=== PATIENT | male | born 1960 | race Caucasian/White ===

== ENCOUNTER → 2024-06-05 15:02 | Outpatient (REF) | payer OTHER, SELFPAY | LOC: HWRAD 15:02 | PROVIDERS: ATTENDING PHYSICIAN Physician Assistant Medical | DX: S29.9XXA Unspecified injury of thorax, initial encounter (principal) | CPT/HCPCS: 71111 ==

== ENCOUNTER 2024-09-04 06:33 | Day surgery (SDC) | payer OTHER, SELFPAY ==
[2024-08-29 10:50] LABS: Hematocrit 42.9 % (39.0-52.0); Hemoglobin 14.1 g/dL (13.0-18.0); Mean Corp Hgb Conc. 32.9 g/dL (33.0-37.0); Mean Corpuscular Hgb 27.5 pg (27.0-31.0); Mean Corpuscular Volume 83.8 fL (80.0-94.0); Platelet Count 195 10^3/uL (130-400); Red Blood Cell Count 5.12 10^6/uL (4.70-6.10); Red Cell Dist. Width 14.6 % (11.5-14.5); White Blood Cell Count 5.9 10^3/uL (4.8-10.8)
[2024-08-29 11:33] LABS: Blood Urea Nitrogen 12 mg/dl (9-20); Calcium 9.4 mg/dl (8.4-10.2); Carbon Dioxide 29 mmol/L (22-30); Chloride 105 mmol/L (98-107); Glucose 104 mg/dl (70-99); Potassium 4.1 mmol/L (3.5-5.1); Sodium 146 mmol/L (135-145); eGFR > 60.00
[2024-08-29 12:33] VITALS: BMI 28.8
[2024-09-04] VITALS (9 sets, daily range): BP systolic 104–152; BP diastolic 53–96; BMI 28.8
--- NOTE | 2024-09-04 07:16 | HP.FOC2 ---
Focused History & Physical
Chief Complaint
HPI:
Chief Complaint: Left inguinal hernia
HPI / Indication for Planned Procedure: Patient is a 64-year-old male recently seen in outpatient surgical evaluation secondary to a few month history of swelling in the left inguinal region. Swelling present upon standing. Awareness of the hernia
being present but no significant pain or discomfort. No symptoms suggestive of intermittent incarceration or obstruction.
He has previously undergone right inguinal herniorrhaphy as a child and subsequent repair of acute incarceration for recurrent right inguinal hernia in 2007.
Relevant Past Medical History: Other (Hypertension, A-fib, hyperlipidemia, CAD, GERD, obesity)
Relevant Social History: Negative
Relevant Family History: Negative
Relevant Past Surgical History: Positive for (History of coronary stenting, CABG x 3, cardiac cath, sternal repair, previous right inguinal herniorrhaphy x 2)
Review of Systems
Review of Pertinent Systems: All Systems Negative
Medication
See Medication form for detailed medications: Yes
Medication List (including Herbals & OTC):
aspirin 81 mg tablet,delayed release ([place] Aspirin) 81 mg PO HS 11/01/15
cholecalciferol (vitamin D3) 50 mcg (2,000 unit) tablet 2,000 unit PO HS 07/30/17
amlodipine 10 mg tablet 20 mg PO HS 08/31/24
hydrocodone bitartrate 10 mg capsule, oral only, extended rel 12 hr 10 mg PO Q12H 08/31/24
isosorbide mononitrate 30 mg tablet,extended release 24 hr 30 mg PO HS 08/31/24
morphine 15 mg tablet,extended release 15 mg PO Q12H 08/31/24
warfarin 5 mg tablet 5 mg PO DIRECTED 08/31/24
warfarin 7.5 mg tablet 7.5 mg PO DIRECTED 08/31/24
Medications Reviewed: Yes
Allergies and Reactions
Patient has Allergies: Yes
Noted Allergies and Reactions:
Allergy/AdvReac Type Severity Reaction Status Date / Time
cat dander Allergy ITCHING, Verified 08/31/24 13:34
CONGESTION
house dust Allergy CONGESTION Verified 08/31/24 13:34
pollen extracts Allergy CONGESTION Verified 08/31/24 13:34
Pertinent Physical Exam
All Other Systems: Negative
Head/Neck: Normal
Lungs: Normal
Heart: Normal
Abdomen: Other (Left inguinal hernia, reducible, nontender) and Other (Right inguinal surgical scars)
Extremities: Normal
Neurological: Normal
Diagnosis / Assessment
64-year-old male presenting for scheduled operative correction symptomatic left inguinal hernia
Plan / Procedure
Robotic assisted laparoscopic repair left inguinal hernia with mesh
Anesthesia/Sedation to be done by Anesthesia Provider: Yes
[2024-09-04] MEDS: TYLENOL 1000 MG PO (07:46)
--- NOTE | 2024-09-04 08:36 | W.SUR.PREOP ---
Pre-Operative Surgical Note
-
I have examined this patient prior to the performance of the scheduled procedure.
The patient's condition is unchanged from the time of the current History and
Physical and the patient is able to undergo the scheduled procedure.
--- NOTE | 2024-09-04 10:20 | W.IMMPOSTOP ---
Surgical Immed Post Op Note
-
Primary Surgeon: Manna
Assisting Surgeon: Danielle BLAND
Pre-op Diagnosis: Left inguinal hernia
Post-op Diagnosis: Left inguinal hernia, direct
Procedure Performed: RAL CHESTER repair left inguinal hernia mesh; 3D max large mid weight
Anesthesia Type: GETA +0.25% Marcaine
Specimen / Cultures: None
Estimated Blood Loss: 6 mL
Complications: None immediate
Operative Findings: Left direct inguinal hernia. Left indirect and femoral spaces normal. Plicated pseudosac of the direct space with 2-0 PDS strata fix to George's ligament. 3D max large mid weight mesh repair secured to George's with 2
interrupted 2-0 Vicryl sutures. Peritoneal flap closed with 2-0 Monocryl STRATAFIX spiral suture. No incidental findings.
--- NOTE | 2024-09-04 10:24 | OR.RPT ---
Operative Report
Operative Report
Date of operative procedure: 09/04/2024
Primary Surgeon: Jose Manuel Hinkle MD
Assisting Surgeon: EDWINA Thomas
Pre-op Diagnosis: Left inguinal hernia
Post-op Diagnosis: Left inguinal hernia, direct
Procedure Performed: Robotic assisted laparoscopic CHESTER repair left inguinal hernia with mesh; 3D max large mid weight mesh
Anesthesia Type: GETA +0.25% Marcaine
Specimen / Cultures: None/none
Estimated Blood Loss: 6 mL
Complications: None immediate
Indications for operative procedure: Patient is a 64-year-old male recently seen in outpatient surgical evaluation secondary to a few month history of swelling in the left inguinal region. Left inguinal swelling present upon standing. Awareness
of the hernia being present but no significant pain or discomfort. No symptoms suggestive of intermittent incarceration or obstruction. After discussion with the patient and his regarding treatment options he wished to pursue operative
correction. We discussed various operative approaches to repair and have elected to proceed with a robotic assisted laparoscopic left inguinal herniorrhaphy with mesh.
Brief summary of operative Findings: Left direct inguinal hernia. Left indirect and femoral spaces normal. Plicated pseudosac of the direct space with 2-0 PDS strata fix to George's ligament. 3D max large mid weight mesh repair secured to
George's with 2 interrupted 2-0 Vicryl sutures. Peritoneal flap closed with 2-0 Monocryl STRATAFIX spiral suture. No incidental findings.
Operation detail: The patient was identified in the preoperative holding area. I confirmed the left inguinal region to be the surgical site and side with the patient preoperatively which was then marked and initialed. He was interviewed by the
anesthesia and nursing staff then brought back to the operating room. The patient was placed on the operating table in supine position. The bilateral upper extremities were carefully padded and tucked at the side utilizing the arm guard
positioning system. Pneumatic compression boots were on the bilateral lower extremities. Following induction of general endotracheal anesthesia the patient was administered Ancef 2 g IV for prophylactic antibiotic coverage. The patient's anterior
abdominal wall was now widely and sterilely prepped with ChloraPrep and then draped in the usual manner. The surgical timeout was completed and the procedure was confirmed.
I initially proceeded with Veress needle insufflation in the left subcostal midclavicular line location. Once insufflated to 12 mmHg pressure then a left midclavicular line 8 mm trocar was then placed. The robotic scope was inserted, there was no
evidence of iatrogenic injury from access. The Veress needle was withdrawn. An epigastric 8 mm trocar was placed just to the left of the midline. A right midclavicular line 8 mm trocar was placed. The patient was then transition into 14 degrees
Trendelenburg to expose the inguinal/pelvic space and the robot was docked.
At the surgeon console inspection of the pelvis confirmed the presence of a left direct inguinal hernia. There were no additional incidental intra-abdominal findings. Previous history of right inguinal herniorrhaphy remained intact without evidence
of adhesions or peritoneal scar tissue.
I initially began with creation of a peritoneal flap at the level of the left ASIS to the left medial umbilical ligament. The preperitoneal plane was now established along the length of the flap and developed inferiorly down to the inguinal space.
The medial dissection proceeded until the notch of the pubic symphysis was exposed at the midline followed by George's ligament on the left side. George's ligament was now cleared completely reducing the herniated peritoneum and preperitoneal fat
off of the pseudosac of the direct inguinal hernia space. The left femoral space was exposed and normal. The underside of George's ligament was exposed as well. The peritoneal flap was now mobilized laterally down to the internal ring. The
peritoneum was now grasped and reduced off the left spermatic cord with identification of the vas and the spermatic cord vessels. The peritoneal dissection continued back proximally past the turn in the left vas deferens and then overlying the left
iliac space to meet up with the medial dissection. The posterior dissection continued until there was wide separation between the vas and the spermatic cord vessels. The dissection continued posterior laterally for full exposure of the
myopectineal orifice.
With the myopectineal orifice now completely exposed hemostasis was confirmed. The attenuated pseudosac of the direct space was plicated, reduced and secured to George's ligament with a 2-0 PDS STRATAFIX spiral stitch. A 3D max large mid weight
mesh was utilized for repair. The mesh was positioned parallel to the ileopubic tract. It was secured at 2 separate locations inferior medially on George's ligament with 2 simple interrupted 2-0 Vicryl sutures. The patient was now begun to be
taken out of Trendelenburg to confirm that the posterior aspect of the mesh was lying flat and that there was no shelling or undermining of the mesh by the peritoneal edge. The peritoneal flap was now closed with a 2-0 Monocryl STRATAFIX spiral
suture with a running [place] type stitch.
A flexible suction catheter was placed through an 8 mm trocar and introduced into the peritoneal flap to evacuate the air out of the preperitoneal space. This again confirmed good positioning of the inguinal hernia mesh. There was no shelling or
folding of the mesh and no undermining and mesh by the peritoneal edge. The peritoneal covering of the mesh was completely intact.
At this point the robot was undocked. All sponge instrument and needle counts were confirmed to be correct x 2. The CO2 insufflation was now carefully evacuated out of the abdominal cavity. The trocar sites were removed as well as the flexible
suction catheter. Skin was closed with 4-0 Monocryl. Sterile surgical glue dressings were applied. The patient tolerated the procedure well and was transferred to the recovery unit for routine postoperative monitoring.
== END 2024-09-04 12:10 | disposition home or self-care (01) ==
LOC: SDS 06:33
PROVIDERS: ATTENDING PHYSICIAN Surgery; FAMILY PHYSICIAN Family Medicine
PROC: 8E0W4CZ Robotic Assisted Procedure of Trunk Region, Percutaneous Endoscopic Approach (ICD-10-PCS; 2024-09-04)
PROC: 0YU64JZ Supplement Left Inguinal Region with Synthetic Substitute, Percutaneous Endoscopic Approach (ICD-10-PCS; 2024-09-04)
DX: K40.90 Unilateral inguinal hernia, without obstruction or gangrene, not specified as recurrent (principal); I10 Essential (primary) hypertension; E66.9 Obesity, unspecified; E78.5 Hyperlipidemia, unspecified; I25.10 Atherosclerotic heart disease of native coronary artery without angina pectoris; I48.91 Unspecified atrial fibrillation; K21.9 Gastro-esophageal reflux disease without esophagitis
CPT/HCPCS: 49650; 36415; 80048; 85027; C1781

== ENCOUNTER 2025-07-16 17:05 | Emergency (ER) | payer MEDICARE, OTHER, SELFPAY ==
[2025-07-16 17:14] VITALS: BP 162/101
[2025-07-16 19:12] LABS: Hematocrit 31.8 % (39.0-52.0); Hemoglobin 9.2 g/dL (13.0-18.0); Mean Corp Hgb Conc. 28.9 g/dL (33.0-37.0); Mean Corpuscular Volume 66.0 fL (80.0-94.0); Platelet Count 249 10^3/uL (130-400); Red Cell Dist. Width 17.5 % (11.5-14.5)
[2025-07-16 19:13] LABS: INR 2.95; PT 30.6 Sec (11.4-14.6)
[2025-07-16 19:14] LABS: APTT 68.8 Sec (23.4-35.0)
[2025-07-16 19:21] LABS: Blood Urea Nitrogen 9 mg/dl (9-20); Calcium 9.0 mg/dl (8.4-10.2); Carbon Dioxide 26 mmol/L (22-30); Chloride 105 mmol/L (98-107); Glucose 107 mg/dl (70-99); Potassium 3.3 mmol/L (3.5-5.1); Sodium 142 mmol/L (135-145); eGFR > 60.00
[2025-07-16 19:27] LABS: Troponin I 0.016 ng/ml
--- NOTE | 2025-07-16 19:41 | ED.GENMED ---
History of Present Illness
General
Chief Complaint: Extremity Pain (non-traumatic)
Source: patient
Exam Limitations: none
Time Seen by Provider: 07/16/25 18:13
History of Present Illness
History of Present Illness:
65-year-old male complaining of left arm pain and at times numbness. It has been there for a while but worse and more continuous for last 2 days. Denies chest pain shortness of breath. Sent by his primary for a cardiac evaluation. Denies unusual
headache. Does at times get posterior neck pain. Patient is convinced it is related to his IV sticks at his left antecubital area from his INR's.
Past History
Past History
ED Past Medical History: Arrthythmia, CAD and HTN
ED Past Surgical History: Cardiac and Other (Right hernia repair); Negative Urological
Social History
Tobacco: Smoker
Alcohol: Occasional
Drug: None
Personal:
Living: with family
Employment: Employed
Family History
Family History: Hypertension
Review of Systems
Review of Systems
All Other Systems: Not applicable
Constitutional: Denies fever
Respiratory: Reports no symptoms
Cardiac: Reports no symptoms
ABD/GI: Denies bloody stools or black stools
Phy Exam
Physical Exam
Physical Exam:
GENERAL: Alert and oriented in no apparent distress. Initially sitting in the chair nontoxic in appearance
EYE: Orbits normal.
NECK: Supple. Nontender
CARDIAC: Irregular irregular no murmur. Sternotomy scar
LUNGS: Clear breath sounds,normal
ABDOMEN: Soft, without focal tenderness or distention. Large upper abdominal wall hernia.
NEUROLOGICAL: Alert and oriented , grossly non-focal
SKIN: Warm and dry, no rash or lesion, no discoloration, skin intact.
MUSCULOSKELETAL: No edema,no deformity.Good color. Good pulses to the left and right arm. No swelling or deformity to the left arm. Good distal capillary refill. Good groundskeeping maintenance worker. No point tenderness. No forearm or upper arm swelling.
PSYCH: Normal and appropriate interaction.
Course
Orders/Labs/Results
Orders:
Orders
07/16/25 18:53
Basic Metabolic Panel Urgent
Complete Blood Count/With Diff Urgent
PTT Urgent
Prothrombin Time Urgent
Troponin I Urgent
07/16/25 19:48
Dexamethasone Sod Phosphate [Decadron] 6 mg IV NOW STA
Abnormal Lab Results
07/16/25
18:53
Hgb 9.2 L g/dL
(13.0-18.0)
Hct 31.8 L %
(39.0-52.0)
MCV 66.0 L fL
(80.0-94.0)
MCH 19.1 L pg
(27.0-31.0)
MCHC 28.9 L g/dL
(33.0-37.0)
RDW 17.5 H %
(11.5-14.5)
MPV 11.2 H fL
(7.4-10.4)
Lymphocytes % 16.8 L %
(20.5-51.1)
PT 30.6 H Sec
(11.4-14.6)
APTT 68.8 H Sec
(23.4-35.0)
Potassium 3.3 L mmol/L
(3.5-5.1)
Glucose 107 H mg/dl
(70-99)
07/16/25 18:53
07/16/25 18:53
Vital Signs
Initial and Last Documented VS:
Initial Vital Signs
Temp Pulse Resp BP Pulse Ox
98.8 F 68 18 162/101 96
07/16/25 17:14 07/16/25 17:14 07/16/25 17:14 07/16/25 17:14 07/16/25 17:14
Last Documented Vital Signs
Temp Pulse Resp BP Pulse Ox
98.8 F 68 18 162/101 96
07/16/25 17:14 07/16/25 17:14 07/16/25 17:14 07/16/25 17:14 07/16/25 19:47
MDM/Problems Addressed
Differential Diagnosis Includes:
Patient complaining of days of continuous nonexertional left arm pain. He denies any chest pain or shortness of breath with this pain. There is nothing to support his theory of a issue with his IV sticks. The antecubital area appears normal.
Nothing to support a DVT. He is on Coumadin with therapeutic INR. There is no swelling no warmth no erythema. He has great distal pulses and color. Highly doubt cardiac with 2 days of nonexertional continuous arm symptoms with no acute changes
on EKG and a stable troponin. I suspect this is a radiculopathy. I offered a CT for further evaluation. No indication for stat MRI. I also reviewed his hemoglobin which was significantly different than the hemoglobin of 2023. He states his
stools have not been dark or tarry. They have been if anything light in color. I recommend rectal exam to evaluate for occult bleeding. He absolutely refuses. He was not pleasant during this conversation. At this time I see no indication for
further cardiac testing acutely. He should have a rectal exam but refuses. I do not feel there is an acute vascular issue. As for pain management he is on chronic pain management. When I reevaluated him and discussed these issues, he was sitting
up reading a book in no distress. . I do not feel I can add further from a pain management standpoint. I did offer a shot of a steroid which may help if this is a radiculopathy.
*Pulse Oximetry
SaO2: 96
Oxygen Mode of Delivery: Room air
Patient hypoxic: no
*EKG
Interpreted by ED Provider?: Yes
Interpretation: abnormal
Rate: normal
Rhythm: a-fib
Blachly: right axis deviation
Interval: normal interval
QRS Pattern: normal QRS
Ischemia: non-specific ST changes
*Critical Care Note
Total Time (30-74mins, 75-104mins- exclusive of procedures): Not Applicable
Data Reviewed
Review of Other/Old Records Reveals: Labs, Records and Testing
ED Attending Note
-
Portions of this chart may have been created with voice recognition software.� Occasional wrong word or��sound alike� substitutions may have occurred due to the inherent limitations of voice recognition software.
Discharge Plan
Departure
Patient Disposition: Home (Routine Discharge)
Date of Disposition: 07/16/25
Time of Disposition: 19:53
Patient with high blood pressure during this ER visit?: Yes
Discharge Problem:
Left arm pain, Suspect radiculopathy, Mild hypokalemia, New onset anemia
Instructions: Radiculopathy of the neck and back (including sciatica), BLOOD PRESSURE
Prescriptions:
No Action
aspirin [[place] Aspirin] 81 MG tablet,delayed release (DR/EC)
81 mg PO HS
cholecalciferol (vitamin D3) 2,000 UNIT tablet
2,000 unit PO HS
warfarin 7.5 mg Tablet
7.5 mg PO DIRECTED
Rx Instructions:
TUES, SAT
isosorbide mononitrate 30 mg Tablet Extended Release 24 Hr
30 mg PO HS
amlodipine 10 mg Tablet
20 mg PO HS
warfarin 5 mg Tablet
5 mg PO DIRECTED
Rx Instructions:
MON, WED, THURS, FRI, SUN
morphine 15 mg Tablet Extended Release
15 mg PO Q12H
hydrocodone bitartrate 10 mg Capsule, Oral Only, Er 12hr
10 mg PO Q12H
acetaminophen [Tylenol Extra Strength] 500 mg tablet
1,000 mg PO Q6HPRN PRN (Reason: mild pain) Qty: 1 0RF
oxycodone 5 mg tablet
5 mg PO Q4HPRN PRN (Reason: breakthrough/severe pain) Qty: 5 0RF
Referrals:
Mis Sanchez PA-C [Family Provider, Family Practice] - Follow up in 2-3 days
Activity Restrictions/Additional Instructions:
Call your primary physician tomorrow for close follow-up
You should have a anemia workup and should have your hemoglobin repeated in the next few days to make sure it is not going lower
Return sooner with increased pain weakness fever arm swelling redness or any other concerning symptoms.
Also return with recurrent chest pain shortness of breath etc.
Interventions
Interventions:
*Risk Screen - Suicide Last Done: 07/16/25 17:14
*Neglect/Abuse Screening Last Done: 07/16/25 17:14
*Nursing Disposition Last Done: 07/16/25 20:04
ED-Musculoskeletal Assessment Last Done: 07/16/25 18:11
Discharge Date and Time
Discharge Date/Time: 07/16/25 20:05
Print Language: TELUGU
[2025-07-16] MEDS: DECADRON 6 MG IV (19:59)
[2025-07-16 20:23] LABS: Nucleated Red Blood Cells % 0 % (-)
[2025-07-16 20:58] LABS: Anisocytosis 2+; Hypochromasia 2+; Macrocytosis 1+; Normal RBC Morphology No; Ovalocytes 2+; Spherocytes 1+; Stomatocytes Occasional; Target Cells Occasional
== END 2025-07-16 20:05 | disposition home or self-care (01) ==
LOC: EMR 17:05
PROVIDERS: EMERGENCY PHYSICIAN Emergency Medicine; FAMILY PHYSICIAN Physician Assistant Medical
DX: M79.602 Pain in left arm (principal); E87.6 Hypokalemia; D64.9 Anemia, unspecified; I48.91 Unspecified atrial fibrillation; I25.10 Atherosclerotic heart disease of native coronary artery without angina pectoris; I10 Essential (primary) hypertension; G89.29 Other chronic pain; F17.200 Nicotine dependence, unspecified, uncomplicated; Z79.01 Long term (current) use of anticoagulants; Z82.49 Family history of ischemic heart disease and other diseases of the circulatory system
CPT/HCPCS: 99284; 96374; 80048; 84484; 85025; 85610; 85730; 93005

== ENCOUNTER → 2025-08-17 11:32 | Outpatient (REF) | payer MEDICARE, OTHER, SELFPAY | LOC: RAD 11:32 | PROVIDERS: ATTENDING PHYSICIAN Physician Assistant Medical | DX: Z95.1 Presence of aortocoronary bypass graft (principal); M79.601 Pain in right arm; M79.602 Pain in left arm | CPT/HCPCS: 93971 ==